=== PATIENT | male | born 1970 | race Caucasian/White ===

== ENCOUNTER 2024-01-14 13:32 | Emergency (ER) | payer BC, SELFPAY ==
[2024-01-14 13:34] VITALS: BP 115/82
[2024-01-14 14:05] VITALS: BP 116/78
[2024-01-14 14:54] LABS: % Basophils 0.6 % (0-2); % Eosinophils 1.4 % (0-6); % Immature Granulocytes 0.5 % (0-0.5); % Lymphocytes 23.5 % (20.5-51.1); % Monocytes 7.8 % (1.7-9.3); % Neutrophils 66.2 % (42.2-75.2); Absolute Eosinophils 0.1 10^3/uL (0-0.7); Absolute Lymphocytes 1.5 10^3/uL (1.2-3.4); Absolute Monocytes 0.5 10^3/uL (0.1-0.6); Absolute Neutrophils 4.3 10^3/uL (1.4-6.5); Hematocrit 41.2 % (39.0-52.0); Hemoglobin 13.9 g/dL (13.0-18.0); Mean Corp Hgb Conc. 33.7 g/dL (33.0-37.0); Mean Corpuscular Hgb 30.4 pg (27.0-31.0); Mean Corpuscular Volume 90.2 fL (80.0-94.0); Nucleated Red Blood Cells % 0 % (-); Platelet Count 162 10^3/uL (130-400); Red Blood Cell Count 4.57 10^6/uL (4.70-6.10); Red Cell Dist. Width 12.7 % (11.5-14.5); White Blood Cell Count 6.5 10^3/uL (4.8-10.8)
--- NOTE | 2024-01-14 14:54 | ED.GENMED ---
History of Present Illness
General
Chief Complaint: Chest Problem
Source: patient and spouse
Exam Limitations: none
Time Seen by Provider: 01/14/24 14:06
Nursing documentation reviewed up to this point in time: agreed with
History of Present Illness
History of Present Illness:
53-year-old male with history of HLD presents stating about 5 weeks ago he had 2 incidences of mid chest tightness spread out both arms and shoulders down both arms to elbows for about 20 seconds each time. At that time he had a contact dermatitis
rash and was on steroids so he just thought it might be a side effect of the steroid.
3 weeks ago he woke in the morning and getting out of bed had a charley horse of his left hamstring, he knelt on the floor to try to get rid of it, his was downstairs getting coffee and she heard a thud and ran out to find him on the floor eyes
open mouth moving but no sound coming out. She called EMS who arrived and he was completely back to normal by then they checked him out and said he was 'fine.'
10 days ago he was in [place] and had 'another episode to a lesser degree' of chest symptoms he had 5 weeks ago. This episode lasted 15 seconds, he squatted to the ground to take some deep breaths, his says 'it lasted a minute and he was
tremulous and looks like he could not catch his breath.'
Patient admits to a lot of stress as his father is ill in [place] and in the hospital and his mother keeps pressuring him to go down there to take care of his father. He denies stress at work.
Symptoms not associated with dizziness, n/v, denies abdominal pain, no family hx of early cardiac problems, both parents still alive.
Past History
Past History
ED Past Medical History: Hypercholesterolemia
ED Past Surgical History: None
Social History
Tobacco: Non-smoker
Alcohol: Occasional
Personal:
Living: with family
Employment: Employed
Review of Systems
Review of Systems
Allergies reviewed?: Yes
Other source history: family
All Other Systems: ROS reviewed and negative except as documented in HPI and ROS
Constitutional: Denies fever or fatigue
Respiratory: Denies trouble breathing
Cardiac: Reports chest pain (as noted in HPI, none since last episode) and syncope (states he 'passed out' with the Charley Horse in left ham string, no relation to the chest pain); Denies diaphoresis or palpitations
ABD/GI: Denies abdominal pain or nausea
: Denies difficulty voiding
Musculoskeletal: Denies edema
Skin: Reports no symptoms
Neurological: Reports no symptoms
Phy Exam
Physical Exam
Physical Exam:
GENERAL: No acute distress. A&Ox3.
CONSTITUTIONAL: Afebrile.
EYES: clear, conjunctivae normal
ENMT: moist mucus membranes
RESPIRATORY: Regular respirations, nonlabored, lungs clear.
CARDIOVASCULAR: Regular rate and rhythm, no murmurs, no rubs.
GI: Soft, nontender, normal BS
MUSCULOSKELETAL: Moves with ease. Well perfused.
SKIN: Warm, dry, campos
PSYCH: Normal mood and affect. Well kept, interactive and appropriate
NEUROLOGIC: Awake, alert and oriented. No focal neurological deficits
Course
Orders/Labs/Results
Orders:
Orders
01/14/24 13:39
Electrocardiogram (*1) Urgent
Reason for Study: Other
Other Reason for Exam: intermittent chest tightness
EKG- Treatment ONCE
01/14/24 14:44
Complete Blood Count/With Diff Urgent
Comprehensive Metabolic Panel Urgent
Magnesium Urgent
Troponin I Urgent
Abnormal Lab Results
01/14/24
14:44
RBC 4.57 L 10^6/uL
(4.70-6.10)
MPV 11.0 H fL
(7.4-10.4)
BUN 25 H mg/dl
(9-20)
01/14/24 14:44
01/14/24 14:44
Vital Signs
Initial and Last Documented VS:
Initial Vital Signs
Temp Pulse Resp BP Pulse Ox
98.4 F 86 18 115/82 98
01/14/24 13:34 01/14/24 13:34 01/14/24 13:34 01/14/24 13:34 01/14/24 13:34
Last Documented Vital Signs
Temp Pulse Resp BP Pulse Ox
98.4 F 66 11 132/64 96
01/14/24 13:34 01/14/24 16:30 01/14/24 16:30 01/14/24 16:00 01/14/24 15:30
MDM/Problems Addressed
Differential Diagnosis Includes:
Angina, ACS, musculoskeletal pain
vasovagal episode 3 weeks ago with Charley Horse
MDM/Problems Addressed:
53-year-old male with history of HLD presents stating about 5 weeks ago he had 2 incidences of mid chest tightness spread out both arms and shoulders down both arms to elbows for about 20 seconds each time. At that time he had a contact dermatitis
rash and was on steroids so he just thought it might be a side effect of the steroid.
3 weeks ago he woke in the morning and getting out of bed had a charley horse of his left hamstring, he knelt on the floor to try to get rid of it, his was downstairs getting coffee and she heard a thud and ran out to find him on the floor eyes
open mouth moving but no sound coming out. She called EMS who arrived and he was completely back to normal by then they checked him out and said he was 'fine.'
10 days ago he was in [place] and had 'another episode to a lesser degree' while lifting a of chest symptoms he had 5 weeks ago. This episode lasted 15 seconds, he squatted to the ground to take some deep breaths, his says 'it lasted a minute
and he was tremulous and looks like he could not catch his breath.'
Patient admits to a lot of stress as his father is ill in [place] and in the hospital and his mother keeps pressuring him to go down there to take care of his father. He denies stress at work.
Symptoms not associated with dizziness, n/v, denies abdominal pain, no family hx of early cardiac problems, both parents still alive.
Afebrile, NAD
EKG: NSR
4:00 p.m.
CBC normal
CMP: no clinically significant abnormality
Troponin normal
Pt and reassured
Referred to Cardiology
*EKG
Interpreted by ED Provider?: Yes
EKG Intrepretation Date: 01/14/24
Interpretation: normal
Rate: normal
Rhythm: sinus
[place]: normal axis
Interval: normal interval
QRS Pattern: normal QRS
Ischemia: no ischemia
*Critical Care Note
Total Time (30-74mins, 75-104mins- exclusive of procedures): Not Applicable
ED Attending Note
-
Portions of this chart may have been created with voice recognition software.� Occasional wrong word or��sound alike� substitutions may have occurred due to the inherent limitations of voice recognition software.
Discharge Plan
Departure
Patient Disposition: Home (Routine Discharge)
Date of Disposition: 01/14/24
Time of Disposition: 16:12
Patient with high blood pressure during this ER visit?: No
Condition: Good
Discharge Problem:
Atypical chest pain, Vasovagal episode
Instructions: Vasovagal Response (DC), Chest pain - Discharge instructions
Referrals:
Cesar Duke MD [Active] - Next open appointment
Jose Summers DO [Family Provider] -
Activity Restrictions/Additional Instructions:
As we discussed, there is nothing worrisome in your workup here today, specifically no indication of injury to your heart/heart attack.
Drink at least eight 8 ounce glasses of water/fluid daily to stay hydrated
You most likely had a vasovagal episode with the bridgette horse in your leg
Call the cardiology office and make a follow-up appointment for more thorough cardiology evaluation
Interventions
Interventions:
*Risk Screen - Suicide Last Done: 01/14/24 13:34
*General Assessment Last Done: 01/14/24 13:34
*Neglect/Abuse Screening Last Done: 01/14/24 13:34
*Nursing Disposition Last Done: 01/14/24 16:36
ED- Cardiac Assessment Last Done: 01/14/24 14:47
ED- Pulmonary Assessment Last Done: 01/14/24 14:47
Discharge Date and Time
Discharge Date/Time: 01/14/24 16:36
Print Language: BENGALI
[2024-01-14 15:00] VITALS: BP 109/85
[2024-01-14 15:17] LABS: ALT (SGPT) 21 U/L (0-50); AST (SGOT) 25 U/L (17-59); Albumin 4.1 g/dl (3.5-5.0); Alkaline Phosphatase 60 U/L (38-126); Blood Urea Nitrogen 25 mg/dl (9-20); Calcium 9.6 mg/dl (8.4-10.2); Carbon Dioxide 28 mmol/L (22-30); Chloride 104 mmol/L (98-107); Glucose 93 mg/dl (70-99); Magnesium 2.1 mg/dl (1.6-2.3); Potassium 4.3 mmol/L (3.5-5.1); Sodium 137 mmol/L (135-145); Total Bilirubin 0.5 mg/dl (0.2-1.3); Total Protein 6.4 g/dl (6.3-8.2); eGFR > 60.00
[2024-01-14 15:25] LABS: Troponin I < 0.012 ng/ml
[2024-01-14 16:00] VITALS: BP 132/64
== END 2024-01-14 16:36 | disposition home or self-care (01) ==
LOC: EMR 13:32
PROVIDERS: Registered Nurse; EMERGENCY PHYSICIAN Emergency Medicine; FAMILY PHYSICIAN Family Medicine
DX: R07.89 Other chest pain (principal); E78.5 Hyperlipidemia, unspecified; Z73.3 Stress, not elsewhere classified; Z88.0 Allergy status to penicillin
CPT/HCPCS: 99283; 80053; 83735; 84484; 85025; 93005